=== PATIENT | female | born 1945 | race Caucasian/White ===

== ENCOUNTER 2017-01-09 13:10 | Inpatient (IN) ==
[2017-01-09] MEDS ORDERED: 0.9 % Sodium Chloride 1,000 ML IVC ONE (14:35)
--- NOTE | 2017-01-09 14:49 | Emergency Department Note ---
Disposition Clinical Impression: Pneumonia Qualifiers: Pneumonia type: due to unspecified organism Laterality: left Lung location: unspecified part of lung Qualified Code(s): J18.9 - Pneumonia, unspecified organism Disposition: Admitted As Inpatient Condition: Good Referrals: Raz Jeter DO [Primary Care Provider] - Forms: ED Satisfaction Letter Time of Disposition: 16:33 Altered Mental Status HPI - General Chief Complaint: ED Altered Mental Status Stated Complaint: AMS Time Seen by Provider: 01/09/17 14:45 Source: patient, family Limitations: altered mental status Nursing Notes Reviewed: Yes Vital Signs Reviewed: Yes - History of Present Illness HPI Narrative: 71 year old female with HX of diabetes and sleep apnea presents to the ED lethargic with her daughter. Patients daughter staets that since yesterday she has been coughing with common congestion complaints and that this morning the patient was overtly sleepy in a chair and daughter thought she was just tired. Hwoever this afternoon she trie dto wake the patinet up and the patietn seemd increasingly disoriented and had difficulty answering questions.Daughter checked her POC glucose and at that time it was 110. Daughter states that patien has had decreased oral intake. PAtinet denies any pain at this time but states she does feel dyspneic. PAtinets daughter states that she then took patinet temperature and it was 101.4F Tmax. Did not recieve any anti-pyretics before arrival. No HX of MIs or stroke or recent hospital admissions. - Related Data Home Medications Medication Instructions Recorded Confirmed Alendronate Sodium [Fosamax] 70 mg PO QWEEK 03/10/16 10/08/16 Atenolol [Tenormin] 25 mg PO BID 03/10/16 10/08/16 Levothyroxine Sodium [Tirosint] 75 mcg PO DAILY 03/10/16 03/10/16 Triamterene/HCTZ 37.5/25mg 1 each PO DAILY 03/10/16 10/08/16 [Dyazide] Carvedilol [Coreg] 6.25 mg PO BID 01/09/17 01/09/17 Cholecalciferol (D-3) [Vitamin D] 5,000 unit PO DAILY 01/09/17 01/09/17 Fexofenadine HCl 180 mg PO DAILY 01/09/17 01/09/17 GuaiFENesin/Dextromethorphan 1 each PO Q12H 01/09/17 01/09/17 [Mucinex Dm ER 1,200-60 mg Tab] Insulin Glargine,Hum.rec.anlog 33 unit SQ HS 01/09/17 01/09/17 [Lantus Solostar] Metformin HCl [Glucophage] 1,000 mg PO BID 01/09/17 01/09/17 Allergies Allergy/AdvReac Type Severity Reaction Status Date / Time Penicillins [PCN] Allergy Itching Verified 10/31/16 11:32 Sulfa (Sulfonamide Allergy Nausea Verified 10/31/16 11:32 Antibiotics) aspirin AdvReac See Verified 10/31/16 11:32 Comments Constitutional: Reports: fever, chills, weakness. Denies: weight change Eyes: Denies: eye pain, eye discharge, vision change ENT ED: Reports: congestion. Denies: ear pain, throat pain, dental pain, hearing loss, epistaxis, dysphagia Cardiovascular: Denies: chest pain, palpitations, dyspnea on exertion, edema, syncope Respiratory: Reports: cough, dyspnea. Denies: wheezes, hemoptysis, stridor Gastrointestinal: Denies: abdominal pain, nausea, vomiting, diarrhea, constipation, hematemesis, melena, hematochezia Genitourinary: Denies: dysuria, frequency, hematuria, discharge Musculoskeletal: Denies: back pain, neck pain, arthralgia, myalgia Integumentary: Denies: rash, abrasion, lesions Neurological: Denies: headache, weakness, numbness, paresthesias, confusion, abnormal gait, vertigo Psychiatric: Denies: anxiety, depression, suicidal thoughts, homicidal thoughts , auditory hallucinations, visual hallucinations Past Medical History - Past Medical History Medical history: Reports: asthma, diabetes, hypertension, thyroid disease Surgical history: Reports: non-contributory Psychiatric history: Reports: no psych history - Social History Smoking Status: Former smoker Smokeless Tobacco Status: No Alcohol use: Reports: none Drug use: Reports: none Physical Exam - General Limitations: altered mental status General appearance: lethargic - Head Head exam: atraumatic, normocephalic, normal inspection - Eye Eye exam: Present: normal appearance, PERRL, EOMI - Expanded Eye Exam Pupils: Left: reactive - ENT ENT exam: normal exam, normal oropharynx, mucous membranes dry - Expanded ENT Exam External ear exam: Present: normal external inspection Mouth exam: Present: normal external inspection Teeth exam: Present: normal inspection Throat exam: Present: normal inspection - Neck Neck exam: Present: normal inspection, full ROM, trachea midline - Chest Chest inspection: Present: normal inspection, symmetric chest wall rise - Respiratory Respiratory exam: Present: normal lung sounds bilaterally - Cardiovascular Cardiovascular exam: Present: regular rate, normal rhythm, normal heart sounds - Abdominal Exam Abdominal exam: Present: soft, Non-Tender. Absent: tenderness, distention, guarding, rebound, rigidity - Extremities Exam Extremities exam: Present: normal inspection, full ROM. Absent: tenderness, pedal edema - Expanded Upper Extremity Exam Shoulder exam: Present: normal inspection, full ROM Arm exam: Present: normal inspection, full ROM Elbow exam: Present: normal inspection, full ROM Forearm/Wrist exam: Present: normal inspection, full ROM Hand exam: Present: normal inspection, full ROM Vascular exam: Normal: capillary refill, radial pulse - Expanded Lower Extremity Exam Hip/Pelvis exam: Present: normal inspection, full ROM Upper leg exam: Present: normal inspection, full ROM Knee exam: Present: normal inspection, full ROM Lower leg exam: Present: normal inspection, full ROM Ankle exam: Present: normal inspection, full ROM Foot/toe exam: Present: normal inspection, full ROM Neurovascular/Tendon exam: Absent: motor deficit, sensory deficit, tendon deficit - Back Exam Back exam: Present: normal inspection, full ROM. Absent: tenderness - Neurological Exam Neurological exam: Present: alert - Expanded Neurological Exam Patient oriented to: Present: person, place Speech: Present: fluid speech Cranial nerves: EOM function (II, III, IV, ): Normal, facial sensation (V): Normal, facial palsy (VII): Normal, gag reflex (IX): Normal, tongue deviation ( XII): Normal Motor strength - LUE: 4/5 Motor strength - RUE: 4/5 Motor strength - LLE: 4/5 Motor strength - RLE: 4/5 Upper motor neuron exam: paty neglect: Absent bilaterally, pronator drift: Absent bilaterally Sensory exam upper extremity: light touch: Normal, pin prick: Normal Sensory exam lower extremity: light touch: Normal, pin prick: Normal Coma Scale Eye Opening: Spontaneous Coma Scale Motor Response: Obeys Commands Coma Scale Verbal Response: Oriented Coma Scale Total: 15 - Psychiatric Psychiatric exam: Present: normal affect, normal mood - Skin Skin exam: Present: warm, dry, intact, normal color Course Course Narrative: we will do a sepsis workup on patinet for AMS in addition to a HCT. IVF and tylenol for therapy. - Consultations Consultation #1: discussed case with Dr. Simmons and he accepts patinet to his service Time: 16:33 Vital Signs Temperature 101.7 F H 01/09/17 13:14 Pulse Rate 67 01/09/17 13:14 Respiratory Rate 17 01/09/17 13:14 Blood Pressure 131/68 01/09/17 13:14 O2 Sat by Pulse Oximetry 89 01/09/17 13:14 Temperature 101.7 F H 01/09/17 13:14 Pulse Rate 67 01/09/17 13:14 Respiratory Rate 17 01/09/17 13:14 Blood Pressure 131/68 01/09/17 13:14 O2 Sat by Pulse Oximetry 94 01/09/17 14:12 Oxygen Delivery Oxygen Delivery Room Air Altered Mental Status - Lab Data Result diagrams: 01/09/17 14:55 01/09/17 14:55 Lab Results 01/09/17 01/09/17 01/09/17 Range/Units 13:15 14:55 14:55 WBC 6.6 (4.3-11.1) K/mcL RBC 5.36 H (3.82-4.97) M/mcL Hgb 14.7 (11.5-15.4) g/dL Hct 45.7 H (35.3-44.9) % MCV 85.3 (83.0-100.0) fL MCH 27.4 L (28.0-33.3) pg MCHC 32.2 (31.6-35.5) g/dL RDW 13.8 (11.5-14.5) % Plt Count 182 (140-400) K/mcL MPV 11.0 (9.4-12.4) fL Immature Gran % 0.5 (0-4) % Seg Neutrophils % 79.7 % Lymphocytes % 9.6 % Monocytes % 9.3 % Eosinophils % 0.6 % Basophils % 0.3 % Neutrophils # 5.2 (1.6-8.9) K/mcL Lymphocytes # 0.6 (0.6-4.6) K/mcL Monocytes # 0.6 (0.0-1.3) K/mcL Eosinophils # 0.0 (0.0-0.6) K/mcL Basophils # 0.0 (0.0-0.2) K/mcL PT 12.5 H (9.4-12.1) Seconds INR 1.2 APTT 36.7 H (26.0-36.0) Seconds Sodium (136-145) mEq/L Potassium (3.5-4.5) mEq/L Chloride (98-109) mEq/L Carbon Dioxide (19-29) mEq/L BUN (7-20) mg/dL Creatinine (0.57-1.11) mg/dL Est GFR ( Amer) (> 60) Est GFR (Non-Af Amer) (> 60) BUN/Creatinine Ratio (6-26) Glucose (70-99) mg/dL POC Glucose 110 H (58-89) Calculated Osmolality (280-300) Lactic Acid (0.5-2.2) mmol/L Calcium (8.6-10.8) mg/dL Phosphorus (2.3-4.7) mg/dL Magnesium (1.6-2.6) mg/dL Total Bilirubin (0.2-1.2) mg/dL Direct Bilirubin (0.0-0.5) mg/dL Indirect Bilirubin (0.0-1.2) mg/dL AST (5-34) Units/L ALT (0-55) Units/L Alkaline Phosphatase (38-126) Units/L Troponin I (0-0.03) ng/mL B-Natriuretic Peptide (0-100) pg/mL Serum Total Protein (6.0-8.3) g/dL Albumin (3.5-5.0) g/dL Globulin (2.4-3.5) g/dL Albumin/Globulin Ratio (1.1-2.2) Lipase (8-78) Units/L 01/09/17 01/09/17 01/09/17 Range/Units 14:55 14:55 14:55 WBC (4.3-11.1) K/mcL RBC (3.82-4.97) M/mcL Hgb (11.5-15.4) g/dL Hct (35.3-44.9) % MCV (83.0-100.0) fL MCH (28.0-33.3) pg MCHC (31.6-35.5) g/dL RDW (11.5-14.5) % Plt Count (140-400) K/mcL MPV (9.4-12.4) fL Immature Gran % (0-4) % Seg Neutrophils % % Lymphocytes % % Monocytes % % Eosinophils % % Basophils % % Neutrophils # (1.6-8.9) K/mcL Lymphocytes # (0.6-4.6) K/mcL Monocytes # (0.0-1.3) K/mcL Eosinophils # (0.0-0.6) K/mcL Basophils # (0.0-0.2) K/mcL PT (9.4-12.1) Seconds INR APTT (26.0-36.0) Seconds Sodium 135 L (136-145) mEq/L Potassium 4.0 (3.5-4.5) mEq/L Chloride 96 L (98-109) mEq/L Carbon Dioxide 29 (19-29) mEq/L BUN 10 (7-20) mg/dL Creatinine 1.03 (0.57-1.11) mg/dL Est GFR ( Amer) > 60 (> 60) Est GFR (Non-Af Amer) 53 L (> 60) BUN/Creatinine Ratio 10 (6-26) Glucose 111 H (70-99) mg/dL POC Glucose (58-89) Calculated Osmolality 280 (280-300) Lactic Acid 1.2 (0.5-2.2) mmol/L Calcium 9.6 (8.6-10.8) mg/dL Phosphorus 3.2 (2.3-4.7) mg/dL Magnesium 1.7 (1.6-2.6) mg/dL Total Bilirubin 0.6 (0.2-1.2) mg/dL Direct Bilirubin 0.3 (0.0-0.5) mg/dL Indirect Bilirubin 0.3 (0.0-1.2) mg/dL AST 50 H (5-34) Units/L ALT 37 (0-55) Units/L Alkaline Phosphatase 81 (38-126) Units/L Troponin I 0.00 (0-0.03) ng/mL B-Natriuretic Peptide (0-100) pg/mL Serum Total Protein 7.9 (6.0-8.3) g/dL Albumin 3.8 (3.5-5.0) g/dL Globulin 4.1 H (2.4-3.5) g/dL Albumin/Globulin Ratio 0.9 L (1.1-2.2) Lipase 34 (8-78) Units/L 04//17 Range/Units 14:55 WBC (4.3-11.1) K/mcL RBC (3.82-4.97) M/mcL Hgb (11.5-15.4) g/dL Hct (35.3-44.9) % MCV (83.0-100.0) fL MCH (28.0-33.3) pg MCHC (31.6-35.5) g/dL RDW (11.5-14.5) % Plt Count (140-400) K/mcL MPV (9.4-12.4) fL Immature Gran % (0-4) % Seg Neutrophils % % Lymphocytes % % Monocytes % % Eosinophils % % Basophils % % Neutrophils # (1.6-8.9) K/mcL Lymphocytes # (0.6-4.6) K/mcL Monocytes # (0.0-1.3) K/mcL Eosinophils # (0.0-0.6) K/mcL Basophils # (0.0-0.2) K/mcL PT (9.4-12.1) Seconds INR APTT (26.0-36.0) Seconds Sodium (136-145) mEq/L Potassium (3.5-4.5) mEq/L Chloride (98-109) mEq/L Carbon Dioxide (19-29) mEq/L BUN (7-20) mg/dL Creatinine (0.57-1.11) mg/dL Est GFR ( Amer) (> 60) Est GFR (Non-Af Amer) (> 60) BUN/Creatinine Ratio (6-26) Glucose (70-99) mg/dL POC Glucose (58-89) Calculated Osmolality (280-300) Lactic Acid (0.5-2.2) mmol/L Calcium (8.6-10.8) mg/dL Phosphorus (2.3-4.7) mg/dL Magnesium (1.6-2.6) mg/dL Total Bilirubin (0.2-1.2) mg/dL Direct Bilirubin (0.0-0.5) mg/dL Indirect Bilirubin (0.0-1.2) mg/dL AST (5-34) Units/L ALT (0-55) Units/L Alkaline Phosphatase (38-126) Units/L Troponin I (0-0.03) ng/mL B-Natriuretic Peptide 93 (0-100) pg/mL Serum Total Protein (6.0-8.3) g/dL Albumin (3.5-5.0) g/dL Globulin (2.4-3.5) g/dL Albumin/Globulin Ratio (1.1-2.2) Lipase (8-78) Units/L - EKG Data EKG attestation: Yes I reviewed and interpreted this EKG. EKG results narrative: NSR with rat eof 66. NO STEMI. normal intervals. no change from 03/09/16 1442 TPA Checklist - LKW: 3-4.5 hrs Add. Contraindications Patient/family understanding: The patient/family members have been counseled and understood the risk, benefit , and alternatives of treatment.
[2017-01-09 15:05] LABS: Basophils % 0.3 %; Eosinophils % 0.6 %; Hematocrit 45.7 % (35.3-44.9); Hemoglobin 14.7 g/dL (11.5-15.4); Immature Granulocytes % 0.5 % (0-4); Lymphocytes # 0.6 K/mcL (0.6-4.6); Lymphocytes % 9.6 %; Mean Corpuscular HGB Conc 32.2 g/dL (31.6-35.5); Mean Corpuscular Hemoglobin 27.4 pg (28.0-33.3); Mean Corpuscular Volume 85.3 fL (83.0-100.0); Monocytes # 0.6 K/mcL (0.0-1.3); Monocytes % 9.3 %; Neutrophils # 5.2 K/mcL (1.6-8.9); Platelet Count 182 K/mcL (140-400); Red Blood Count 5.36 M/mcL (3.82-4.97); Red Cell Distribution Width 13.8 % (11.5-14.5); Segmented Neutrophils % 79.7 %
[2017-01-09 15:11] LABS: INR 1.2; Prothrombin Time 12.5 Seconds (9.4-12.1)
[2017-01-09 15:13] LABS: Activated Partial Thrombo Time 36.7 Seconds (26.0-36.0)
[2017-01-09 15:23] LABS: Alanine Aminotransferase 37 Units/L (0-55); Albumin 3.8 g/dL (3.5-5.0); Albumin/Globulin Ratio 0.9 (1.1-2.2); Alkaline Phosphatase 81 Units/L (38-126); Aspartate Amino Transferase 50 Units/L (5-34); BUN/Creatinine Ratio 10 (6-26); Bilirubin,Direct 0.3 mg/dL (0.0-0.5); Bilirubin,Indirect 0.3 mg/dL (0.0-1.2); Bilirubin,Total 0.6 mg/dL (0.2-1.2); Blood Urea Nitrogen 10 mg/dL (7-20); Calcium 9.6 mg/dL (8.6-10.8); Carbon Dioxide 29 mEq/L (19-29); Chloride 96 mEq/L (98-109); Globulin 4.1 g/dL (2.4-3.5); Glucose 111 mg/dL (70-99); Lipase 34 Units/L (8-78); Magnesium 1.7 mg/dL (1.6-2.6); Osmolality,Calculated 280 (280-300); Phosphorous 3.2 mg/dL (2.3-4.7); Sodium 135 mEq/L (136-145); Total Protein 7.9 g/dL (6.0-8.3); eGFR For African Americans > 60 (> 60); eGFR For Non-African Americans 53 (> 60)
[2017-01-09] MEDS ORDERED: Levofloxacin 750 MG/150 ML 750 MG/150 ML BAG IVPB ONE (15:24)
[2017-01-09 16:33] LABS: Bilirubin,Urine Negative (Negative); Blood,Urine Negative (Negative); Clarity,Urine Clear (Clear); Color,Urine Yellow (Yellow); Glucose,Urine (UA) Normal (Normal); Ketones,Urine Negative (Negative); Leukocyte Esterase,Urine Negative (Negative); Nitrite,Urine Negative (Negative); Protein,Urine Negative (Neg-Trace); Urobilinogen,Urine Normal (Normal)
--- NOTE | 2017-01-09 17:03 | Emergency Department Note ---
Disposition Clinical Impression: Pneumonia Qualifiers: Pneumonia type: due to unspecified organism Laterality: left Lung location: unspecified part of lung Qualified Code(s): J18.9 - Pneumonia, unspecified organism Disposition: Admitted As Inpatient Condition: Good General Adult HPI - General Chief complaint: ED Altered Mental Status Stated complaint: AMS Source: patient, family Limitations: altered mental status - History of Present Illness Pain Scale: 0 - Related Data Home Medications Medication Instructions Recorded Confirmed Alendronate Sodium [Fosamax] 70 mg PO QWEEK 03/10/16 01/09/17 Atenolol [Tenormin] 25 mg PO BID 03/10/16 01/09/17 Levothyroxine Sodium [Tirosint] 75 mcg PO QAM 03/10/16 01/09/17 Triamterene/HCTZ 37.5/25mg 1 each PO DAILY 03/10/16 01/09/17 [Dyazide] Carvedilol [Coreg] 6.25 mg PO BID 01/09/17 01/09/17 Cholecalciferol (D-3) [Vitamin D] 5,000 unit PO DAILY 01/09/17 01/09/17 Fexofenadine HCl 180 mg PO DAILY 01/09/17 01/09/17 GuaiFENesin/Dextromethorphan 1 each PO Q12H 01/09/17 01/09/17 [Mucinex Dm ER 1,200-60 mg Tab] Insulin Glargine,Hum.rec.anlog 33 unit SQ HS 01/09/17 01/09/17 [Lantus Solostar] Metformin HCl [Glucophage] 1,000 mg PO BID 01/09/17 01/09/17 Allergies Allergy/AdvReac Type Severity Reaction Status Date / Time Penicillins [PCN] Allergy Itching Verified 10/31/16 11:32 Sulfa (Sulfonamide Allergy Nausea Verified 10/31/16 11:32 Antibiotics) aspirin AdvReac See Verified 10/31/16 11:32 Comments Constitutional: Reports: fever, chills, weakness. Denies: weight change Eyes: Denies: eye pain, eye discharge, vision change ENT ED: Reports: congestion. Denies: ear pain, throat pain, dental pain, hearing loss, epistaxis, dysphagia Cardiovascular: Denies: chest pain, palpitations, dyspnea on exertion, edema, syncope Respiratory: Reports: cough, dyspnea. Denies: wheezes, hemoptysis, stridor Gastrointestinal: Denies: abdominal pain, nausea, vomiting, diarrhea, constipation, hematemesis, melena, hematochezia Genitourinary: Denies: dysuria, frequency, hematuria, discharge Musculoskeletal: Denies: back pain, neck pain, arthralgia, myalgia Integumentary: Denies: rash, abrasion, lesions Neurological: Denies: headache, weakness, numbness, paresthesias, confusion, abnormal gait, vertigo Psychiatric: Denies: anxiety, depression, suicidal thoughts, homicidal thoughts , auditory hallucinations, visual hallucinations Past Medical History - Past Medical History Medical history: Reports: asthma, diabetes, hypertension, thyroid disease Surgical history: Reports: non-contributory Psychiatric history: Reports: no psych history - Social History Smoking Status: Former smoker Smokeless Tobacco Status: No Alcohol use: Reports: none Drug use: Reports: none Physical Exam - General Limitations: altered mental status General appearance: lethargic Course - Reevaluation(s) Reevaluation #1: I saw the patient with the resident, Dr. Velez. She presents with altered mental status and is found to have a fever. She reportedly has had a cough since yesterday. Turns out that she has the flu. However patient is so weak and showing signs of confusion that I do not feel it appropriate for her to be treated on an outpatient basis at this time. We will get a temperature controlled and hydrated her. We will have her admitted to the hospital. Time: 17:03 Vital Signs Temperature 101.7 F H 01/09/17 13:14 Pulse Rate 67 01/09/17 13:14 Respiratory Rate 17 01/09/17 13:14 Blood Pressure 131/68 01/09/17 13:14 O2 Sat by Pulse Oximetry 89 01/09/17 13:14 Temperature 101.7 F H 01/09/17 13:14 Pulse Rate 75 01/09/17 16:00 Respiratory Rate 18 01/09/17 16:00 Blood Pressure 134/71 01/09/17 16:00 O2 Sat by Pulse Oximetry 96 01/09/17 16:00 Oxygen Delivery Oxygen Delivery Nasal Cannula Medical Decision Making - Lab Data Result diagrams: 01/09/17 14:55 01/09/17 14:55 Lab Results 0401/09/17 01/09/17 Range/Units 13:15 14:55 14:55 WBC 6.6 (4.3-11.1) K/mcL RBC 5.36 H (3.82-4.97) M/mcL Hgb 14.7 (11.5-15.4) g/dL Hct 45.7 H (35.3-44.9) % MCV 85.3 (83.0-100.0) fL MCH 27.4 L (28.0-33.3) pg MCHC 32.2 (31.6-35.5) g/dL RDW 13.8 (11.5-14.5) % Plt Count 182 (140-400) K/mcL MPV 11.0 (9.4-12.4) fL Immature Gran % 0.5 (0-4) % Seg Neutrophils % 79.7 % Lymphocytes % 9.6 % Monocytes % 9.3 % Eosinophils % 0.6 % Basophils % 0.3 % Neutrophils # 5.2 (1.6-8.9) K/mcL Lymphocytes # 0.6 (0.6-4.6) K/mcL Monocytes # 0.6 (0.0-1.3) K/mcL Eosinophils # 0.0 (0.0-0.6) K/mcL Basophils # 0.0 (0.0-0.2) K/mcL PT 12.5 H (9.4-12.1) Seconds INR 1.2 APTT 36.7 H (26.0-36.0) Seconds Sodium (136-145) mEq/L Potassium (3.5-4.5) mEq/L Chloride (98-109) mEq/L Carbon Dioxide (19-29) mEq/L BUN (7-20) mg/dL Creatinine (0.57-1.11) mg/dL Est GFR ( Amer) (> 60) Est GFR (Non-Af Amer) (> 60) BUN/Creatinine Ratio (6-26) Glucose (70-99) mg/dL POC Glucose 110 H (58-89) Calculated Osmolality (280-300) Lactic Acid (0.5-2.2) mmol/L Calcium (8.6-10.8) mg/dL Phosphorus (2.3-4.7) mg/dL Magnesium (1.6-2.6) mg/dL Total Bilirubin (0.2-1.2) mg/dL Direct Bilirubin (0.0-0.5) mg/dL Indirect Bilirubin (0.0-1.2) mg/dL AST (5-34) Units/L ALT (0-55) Units/L Alkaline Phosphatase (38-126) Units/L Troponin I (0-0.03) ng/mL B-Natriuretic Peptide (0-100) pg/mL Serum Total Protein (6.0-8.3) g/dL Albumin (3.5-5.0) g/dL Globulin (2.4-3.5) g/dL Albumin/Globulin Ratio (1.1-2.2) Lipase (8-78) Units/L Urine Color (Yellow) Urine Clarity (Clear) Urine pH (5.0-8.0) pH Units Ur Specific Sultan (1.010-1.025) Urine Protein (Neg-Trace) mg/dL Urine Glucose (UA) (Normal) mg/dL Urine Ketones (Negative) mg/dL Urine Blood (Negative) Urine Nitrite (Negative) Urine Bilirubin (Negative) Urine Urobilinogen (Normal) mg/dL Ur Leukocyte Esterase (Negative) Ur Culture Indicated? (NO) 01/09/17 01/09/17 01/09/17 Range/Units 14:55 14:55 14:55 WBC (4.3-11.1) K/mcL RBC (3.82-4.97) M/mcL Hgb (11.5-15.4) g/dL Hct (35.3-44.9) % MCV (83.0-100.0) fL MCH (28.0-33.3) pg MCHC (31.6-35.5) g/dL RDW (11.5-14.5) % Plt Count (140-400) K/mcL MPV (9.4-12.4) fL Immature Gran % (0-4) % Seg Neutrophils % % Lymphocytes % % Monocytes % % Eosinophils % % Basophils % % Neutrophils # (1.6-8.9) K/mcL Lymphocytes # (0.6-4.6) K/mcL Monocytes # (0.0-1.3) K/mcL Eosinophils # (0.0-0.6) K/mcL Basophils # (0.0-0.2) K/mcL PT (9.4-12.1) Seconds INR APTT (26.0-36.0) Seconds Sodium 135 L (136-145) mEq/L Potassium 4.0 (3.5-4.5) mEq/L Chloride 96 L (98-109) mEq/L Carbon Dioxide 29 (19-29) mEq/L BUN 10 (7-20) mg/dL Creatinine 1.03 (0.57-1.11) mg/dL Est GFR ( Amer) > 60 (> 60) Est GFR (Non-Af Amer) 53 L (> 60) BUN/Creatinine Ratio 10 (6-26) Glucose 111 H (70-99) mg/dL POC Glucose (58-89) Calculated Osmolality 280 (280-300) Lactic Acid 1.2 (0.5-2.2) mmol/L Calcium 9.6 (8.6-10.8) mg/dL Phosphorus 3.2 (2.3-4.7) mg/dL Magnesium 1.7 (1.6-2.6) mg/dL Total Bilirubin 0.6 (0.2-1.2) mg/dL Direct Bilirubin 0.3 (0.0-0.5) mg/dL Indirect Bilirubin 0.3 (0.0-1.2) mg/dL AST 50 H (5-34) Units/L ALT 37 (0-55) Units/L Alkaline Phosphatase 81 (38-126) Units/L Troponin I 0.00 (0-0.03) ng/mL B-Natriuretic Peptide (0-100) pg/mL Serum Total Protein 7.9 (6.0-8.3) g/dL Albumin 3.8 (3.5-5.0) g/dL Globulin 4.1 H (2.4-3.5) g/dL Albumin/Globulin Ratio 0.9 L (1.1-2.2) Lipase 34 (8-78) Units/L Urine Color (Yellow) Urine Clarity (Clear) Urine pH (5.0-8.0) pH Units Ur Specific Sultan (1.010-1.025) Urine Protein (Neg-Trace) mg/dL Urine Glucose (UA) (Normal) mg/dL Urine Ketones (Negative) mg/dL Urine Blood (Negative) Urine Nitrite (Negative) Urine Bilirubin (Negative) Urine Urobilinogen (Normal) mg/dL Ur Leukocyte Esterase (Negative) Ur Culture Indicated? (NO) 01/09/17 01/09/17 Range/Units 14:55 16:25 WBC (4.3-11.1) K/mcL RBC (3.82-4.97) M/mcL Hgb (11.5-15.4) g/dL Hct (35.3-44.9) % MCV (83.0-100.0) fL MCH (28.0-33.3) pg MCHC (31.6-35.5) g/dL RDW (11.5-14.5) % Plt Count (140-400) K/mcL MPV (9.4-12.4) fL Immature Gran % (0-4) % Seg Neutrophils % % Lymphocytes % % Monocytes % % Eosinophils % % Basophils % % Neutrophils # (1.6-8.9) K/mcL Lymphocytes # (0.6-4.6) K/mcL Monocytes # (0.0-1.3) K/mcL Eosinophils # (0.0-0.6) K/mcL Basophils # (0.0-0.2) K/mcL PT (9.4-12.1) Seconds INR APTT (26.0-36.0) Seconds Sodium (136-145) mEq/L Potassium (3.5-4.5) mEq/L Chloride (98-109) mEq/L Carbon Dioxide (19-29) mEq/L BUN (7-20) mg/dL Creatinine (0.57-1.11) mg/dL Est GFR ( Amer) (> 60) Est GFR (Non-Af Amer) (> 60) BUN/Creatinine Ratio (6-26) Glucose (70-99) mg/dL POC Glucose (58-89) Calculated Osmolality (280-300) Lactic Acid (0.5-2.2) mmol/L Calcium (8.6-10.8) mg/dL Phosphorus (2.3-4.7) mg/dL Magnesium (1.6-2.6) mg/dL Total Bilirubin (0.2-1.2) mg/dL Direct Bilirubin (0.0-0.5) mg/dL Indirect Bilirubin (0.0-1.2) mg/dL AST (5-34) Units/L ALT (0-55) Units/L Alkaline Phosphatase (38-126) Units/L Troponin I (0-0.03) ng/mL B-Natriuretic Peptide 93 (0-100) pg/mL Serum Total Protein (6.0-8.3) g/dL Albumin (3.5-5.0) g/dL Globulin (2.4-3.5) g/dL Albumin/Globulin Ratio (1.1-2.2) Lipase (8-78) Units/L Urine Color Yellow (Yellow) Urine Clarity Clear (Clear) Urine pH 7.0 (5.0-8.0) pH Units Ur Specific Sultan 1.020 (1.010-1.025) Urine Protein Negative (Neg-Trace) mg/dL Urine Glucose (UA) Normal (Normal) mg/dL Urine Ketones Negative (Negative) mg/dL Urine Blood Negative (Negative) Urine Nitrite Negative (Negative) Urine Bilirubin Negative (Negative) Urine Urobilinogen Normal (Normal) mg/dL Ur Leukocyte Esterase Negative (Negative) Ur Culture Indicated? NO (NO) Attestation Statement - Attestation Attestation: I, Dr. Landry, examined this patient [id number] and my medical decision- making was reviewed with Dr. Velez, Resident Physician. I agree with the documented findings, disposition and treatment plan as described except to the extent set forth below. Please see my progress notes for details.
[2017-01-09] MEDS ORDERED: Naloxone 0.4 MG/ML INJ IVP PRN (17:15)
[2017-01-09] MEDS ORDERED: D5% in Water 1,000 ML IVC PRN (17:20)
[2017-01-09] MEDS ORDERED: Dextrose Gel 15 GM PO PRN ×2 (17:20)
[2017-01-09] MEDS ORDERED: *HR* Dextrose 50 % in Water (Syg) 50 ML SYRINGE IVP PRN (17:20)
[2017-01-09 17:24] LABS: Thyroid Stimulating Hormone 1.452 mcIU/mL (0.350-4.840)
--- NOTE | 2017-01-09 17:28 | Internal Med History&Physical ---
<Brigid Burns M - Last Filed: 01/09/17 17:24> Date of Encounter: 01/09/17 Time of Encounter: 17:24 Assessment and Plan (1) Pneumonia Current visit: Yes Status: Acute Patient with fever and productive cough. Rhonchi on auscultation. CXR shows small right basilar infiltrate, possible pneumonia. IV fluids 0.9NS at 100mL/hr Levaquin IVPB duoneb treatments QID titrate O2 to maintain oxygen saturation > 92%. Qualifiers: Pneumonia type: due to unspecified organism Laterality: right Lung location: lower lobe of lung Qualified Code(s): J18.1 - Lobar pneumonia, unspecified organism (2) Hypertension Current visit: Yes Status: Chronic Controlled since arrival. Continue home doses of carvedilol and dyazide. Qualifiers: Hypertension type: essential hypertension Qualified Code(s): I10 - Essential (primary) hypertension (3) Type 2 diabetes mellitus Current visit: Yes Status: Chronic Diabetic diet Hgb A1c ordered check blood sugars ACHS Hold home metformin. As patient has poor appetite, give Levemir 22u HS tonight instead of usual dose of 33u. Sliding scale correction dose ACHS hypoglycemic protocol. Qualifiers: Diabetes mellitus complication status: with circulatory complication Diabetes mellitus complication detail: with peripheral angiopathy without gangrene Diabetes mellitus half-way insulin use: with farm equipment mechanic apprentice use Qualified Code(s): E11.51 - Type 2 diabetes mellitus with diabetic peripheral angiopathy without gangrene; Z79.4 - backend java developer (current) use of insulin (4) Sleep apnea Current visit: Yes Status: Acute Respiratory consult ordered for CPAP Qualifiers: Sleep apnea type: unspecified type Qualified Code(s): G47.30 - Sleep apnea , unspecified (5) DVT prophylaxis Current visit: Yes Status: Acute Ambulate with assistance anti-embolic stockings lovenox 40mg SQ daily Internal Medicine - H&P: HPI Chief complaint: cough, fever Admitted From: Emergency Dept Plans for Post Hospital Care: Home History of present illness: Ms. Cannon is a 71 year old female hypertension, type 2 diabetes, sleep apnea , hypothyroid, asthma who presented to the emergency department today with complaints of altered mental status. Her daughter brought her in when she noted patient was very lethargic. Patient reports she has been coughing for several days with productive cough as well as poor appetite, fatigue. She reports sinus and nasal congestion, wheezing, and headache. Patient reports she took her insulin last evening but has not been eating as much because of her poor appetite. Because of this without she may have low blood sugar but they checked her blood sugar at home and it was normal at 110. However she did have a fever at home of 101.4. Patient denies chills or sweats. She denies any body aches, chest pain, palpitations, abdominal pain, diarrhea, numbness or tingling. She complains of some burning with urination. Evaluation in the emergency department revealed patient was febrile with temperature of 101.7. Head CT showed no acute intracranial abnormality. Chest x-ray showed small right basilar infiltrate possible pneumonia. EKG showed normal sinus rhythm. White blood cell count was normal at 6.6, lactate was normal at 1.2, troponin was negative at 0.0, BNP was normal at 93. UA was negative for any abnormality. Flu swab was negative. On exam, patient is alert and oriented, complaining of fatigue. She has bilateral rhonchi on auscultation. Heart has regular rate and rhythm. Past Med Surg Social Fam HX - Past Medical History Medical history: asthma, diabetes, hypertension, peripheral artery disease, thyroid disease Psychiatric history: no psych history - Past Surgical History Surgical History: orthopedic, other (back surgery, carpal tunnel), vascular surgery - Social History Smoking Status: Former smoker Smokeless Tobacco Status: No Alcohol use: none Drug use: none - Family History Father Living Status: Age at : 68 Hx Family Cardiac Disorders: Yes Internal Medicine - H&P: Meds Alendronate Sodium [Fosamax] 70 mg PO QWEEK 03/10/16 [History] Atenolol [Tenormin] 25 mg PO BID 03/10/16 [History] Levothyroxine Sodium [Tirosint] 75 mcg PO QAM 03/10/16 [History] Triamterene/HCTZ 37.5/25mg [Dyazide] 1 each PO DAILY 03/10/16 [History] Carvedilol [Coreg] 6.25 mg PO BID 01/09/17 [History] Cholecalciferol (D-3) [Vitamin D] 5,000 unit PO DAILY 01/09/17 [History] Fexofenadine HCl 180 mg PO DAILY 01/09/17 [History] GuaiFENesin/Dextromethorphan [Mucinex Dm ER 1,200-60 mg Tab] 1 each PO Q12H [History] Insulin Glargine,Hum.rec.anlog [Lantus Solostar] 33 unit SQ HS 01/09/17 [History ] Metformin HCl [Glucophage] 1,000 mg PO BID 01/09/17 [History] Allergies Penicillins [PCN] Allergy (Verified 10/31/16 11:32) Itching Sulfa (Sulfonamide Antibiotics) Allergy (Verified 10/31/16 11:32) Nausea aspirin Adverse Reaction (Verified 10/31/16 11:32) See Comments stomach ulcer All Systems PM: A 10-system review of systems was performed and is negative for pertinent findings except as documented above in the HPI. - Constitutional Constitutional: fatigue, fever(s), lethargy, no chills, no night sweats - EENT Eyes: no change in vision, no discharge, no pain, no photophobia Ears: no ear discharge, no ear pain, no tinnitus Nose, mouth and throat: nasal congestion, nasal discharge, sinus pressure, no dysphagia, no neck pain, no sore throat - Cardiovascular Cardiovascular ROS IM: no chest pain, no diaphoresis, no dyspnea, no lightheadedness, no palpitations, no syncope - Respiratory Respiratory: cough, wheezing, chest congestion, excessive phlegm production, no dyspnea - Gastrointestinal Gastrointestinal: no abdominal pain, no diarrhea, no hematemesis, no hematochezia, no melena, no nausea, no vomiting - Genitourinary Genitourinary: dysuria, no change in urinary stream, no flank pain, no hematuria - Musculoskeletal Musculoskeletal ROS IM: no numbness, no tingling - Integumentary Integumentary IM: no rash, no unusual bruising - Neurological Neurological ROS: no confusion, no convulsions, no focal weakness, no numbness, no tingling, no tremor(s) - Hematologic/Lymphatic Hematologic/Lymphatic: no easy bruising - Constitutional Vitals: Temp Pulse Resp BP Pulse Ox 101.7 F H 69 18 128/66 96 01/09/17 13:14 01/09/17 16:30 01/09/17 16:30 01/09/17 16:30 01/09/17 16:30 General appearance: Present: A&O X 3, pleasant, no acute distress - Head Head exam: Present: atraumatic, normocephalic - Eye Eye exam: Present: PERRL, conjuntiva pink, sclera anicteric Pupils: Present: PERRL - Neck Neck exam general surgery: Present: supple, trachea midline. Absent: lymphadenopathy - Respiratory Respiratory exam: Present: rhonchi. Absent: accessory muscle use, rales, wheezes - Cardiovascular Cardiovascular exam: Present: RRR, +S1, +S2. Absent: diastolic murmur, gallop, rubs, systolic murmur - GI/Abdominal GI/Abdominal exam: Present: normal bowel sounds, soft, no peritoneal signs. Absent: distended, tenderness - Extremities Exam Extremities exam: Present: warm, radial pulses palpable and symetrical. Absent : calf tenderness, cyanotic, pedal edema - Neurological Exam Neurological exam: Present: CN II-XII intact, oriented X3, no focal deficits. Absent: facial droop, speech deficit - Skin Skin exam: Present: dry, intact Internal Med - H&P Results - Labs CBC & Chem 7: 01/09/17 14:55 01/09/17 14:55 Labs: All Lab Results (24 Hours) 01/09/17 01/09/17 01/09/17 Range/Units 13:15 14:55 14:55 WBC 6.6 (4.3-11.1) K/mcL RBC 5.36 H (3.82-4.97) M/mcL Hgb 14.7 (11.5-15.4) g/dL Hct 45.7 H (35.3-44.9) % MCV 85.3 (83.0-100.0) fL MCH 27.4 L (28.0-33.3) pg MCHC 32.2 (31.6-35.5) g/dL RDW 13.8 (11.5-14.5) % Plt Count 182 (140-400) K/mcL MPV 11.0 (9.4-12.4) fL Immature Gran % 0.5 (0-4) % Seg Neutrophils % 79.7 % Lymphocytes % 9.6 % Monocytes % 9.3 % Eosinophils % 0.6 % Basophils % 0.3 % Neutrophils # 5.2 (1.6-8.9) K/mcL Lymphocytes # 0.6 (0.6-4.6) K/mcL Monocytes # 0.6 (0.0-1.3) K/mcL Eosinophils # 0.0 (0.0-0.6) K/mcL Basophils # 0.0 (0.0-0.2) K/mcL PT 12.5 H (9.4-12.1) Seconds INR 1.2 APTT 36.7 H (26.0-36.0) Seconds Sodium (136-145) mEq/L Potassium (3.5-4.5) mEq/L Chloride (98-109) mEq/L Carbon Dioxide (19-29) mEq/L BUN (7-20) mg/dL Creatinine (0.57-1.11) mg/dL Est GFR ( Amer) (> 60) Est GFR (Non-Af Amer) (> 60) BUN/Creatinine Ratio (6-26) Glucose (70-99) mg/dL POC Glucose 110 H (58-89) Calculated Osmolality (280-300) Lactic Acid (0.5-2.2) mmol/L Calcium (8.6-10.8) mg/dL Phosphorus (2.3-4.7) mg/dL Magnesium (1.6-2.6) mg/dL Total Bilirubin (0.2-1.2) mg/dL Direct Bilirubin (0.0-0.5) mg/dL Indirect Bilirubin (0.0-1.2) mg/dL AST (5-34) Units/L ALT (0-55) Units/L Alkaline Phosphatase (38-126) Units/L Troponin I (0-0.03) ng/mL B-Natriuretic Peptide (0-100) pg/mL Serum Total Protein (6.0-8.3) g/dL Albumin (3.5-5.0) g/dL Globulin (2.4-3.5) g/dL Albumin/Globulin Ratio (1.1-2.2) Lipase (8-78) Units/L TSH (0.350-4.840) mcIU/mL Urine Color (Yellow) Urine Clarity (Clear) Urine pH (5.0-8.0) pH Units Ur Specific [place] (1.010-1.025) Urine Protein (Neg-Trace) mg/dL Urine Glucose (UA) (Normal) mg/dL Urine Ketones (Negative) mg/dL Urine Blood (Negative) Urine Nitrite (Negative) Urine Bilirubin (Negative) Urine Urobilinogen (Normal) mg/dL Ur Leukocyte Esterase (Negative) Ur Culture Indicated? (NO) 01/09/17 01/09/17 01/09/17 Range/Units 14:55 14:55 14:55 WBC (4.3-11.1) K/mcL RBC (3.82-4.97) M/mcL Hgb (11.5-15.4) g/dL Hct (35.3-44.9) % MCV (83.0-100.0) fL MCH (28.0-33.3) pg MCHC (31.6-35.5) g/dL RDW (11.5-14.5) % Plt Count (140-400) K/mcL MPV (9.4-12.4) fL Immature Gran % (0-4) % Seg Neutrophils % % Lymphocytes % % Monocytes % % Eosinophils % % Basophils % % Neutrophils # (1.6-8.9) K/mcL Lymphocytes # (0.6-4.6) K/mcL Monocytes # (0.0-1.3) K/mcL Eosinophils # (0.0-0.6) K/mcL Basophils # (0.0-0.2) K/mcL PT (9.4-12.1) Seconds INR APTT (26.0-36.0) Seconds Sodium 135 L (136-145) mEq/L Potassium 4.0 (3.5-4.5) mEq/L Chloride 96 L (98-109) mEq/L Carbon Dioxide 29 (19-29) mEq/L BUN 10 (7-20) mg/dL Creatinine 1.03 (0.57-1.11) mg/dL Est GFR ( Amer) > 60 (> 60) Est GFR (Non-Af Amer) 53 L (> 60) BUN/Creatinine Ratio 10 (6-26) Glucose 111 H (70-99) mg/dL POC Glucose (58-89) Calculated Osmolality 280 (280-300) Lactic Acid 1.2 (0.5-2.2) mmol/L Calcium 9.6 (8.6-10.8) mg/dL Phosphorus 3.2 (2.3-4.7) mg/dL Magnesium 1.7 (1.6-2.6) mg/dL Total Bilirubin 0.6 (0.2-1.2) mg/dL Direct Bilirubin 0.3 (0.0-0.5) mg/dL Indirect Bilirubin 0.3 (0.0-1.2) mg/dL AST 50 H (5-34) Units/L ALT 37 (0-55) Units/L Alkaline Phosphatase 81 (38-126) Units/L Troponin I 0.00 (0-0.03) ng/mL B-Natriuretic Peptide (0-100) pg/mL Serum Total Protein 7.9 (6.0-8.3) g/dL Albumin 3.8 (3.5-5.0) g/dL Globulin 4.1 H (2.4-3.5) g/dL Albumin/Globulin Ratio 0.9 L (1.1-2.2) Lipase 34 (8-78) Units/L TSH 1.452 (0.350-4.840) mcIU/mL Urine Color (Yellow) Urine Clarity (Clear) Urine pH (5.0-8.0) pH Units Ur Specific [place] (1.010-1.025) Urine Protein (Neg-Trace) mg/dL Urine Glucose (UA) (Normal) mg/dL Urine Ketones (Negative) mg/dL Urine Blood (Negative) Urine Nitrite (Negative) Urine Bilirubin (Negative) Urine Urobilinogen (Normal) mg/dL Ur Leukocyte Esterase (Negative) Ur Culture Indicated? (NO) 01/09/17 01/09/17 Range/Units 14:55 16:25 WBC (4.3-11.1) K/mcL RBC (3.82-4.97) M/mcL Hgb (11.5-15.4) g/dL Hct (35.3-44.9) % MCV (83.0-100.0) fL MCH (28.0-33.3) pg MCHC (31.6-35.5) g/dL RDW (11.5-14.5) % Plt Count (140-400) K/mcL MPV (9.4-12.4) fL Immature Gran % (0-4) % Seg Neutrophils % % Lymphocytes % % Monocytes % % Eosinophils % % Basophils % % Neutrophils # (1.6-8.9) K/mcL Lymphocytes # (0.6-4.6) K/mcL Monocytes # (0.0-1.3) K/mcL Eosinophils # (0.0-0.6) K/mcL Basophils # (0.0-0.2) K/mcL PT (9.4-12.1) Seconds INR APTT (26.0-36.0) Seconds Sodium (136-145) mEq/L Potassium (3.5-4.5) mEq/L Chloride (98-109) mEq/L Carbon Dioxide (19-29) mEq/L BUN (7-20) mg/dL Creatinine (0.57-1.11) mg/dL Est GFR ( Amer) (> 60) Est GFR (Non-Af Amer) (> 60) BUN/Creatinine Ratio (6-26) Glucose (70-99) mg/dL POC Glucose (58-89) Calculated Osmolality (280-300) Lactic Acid (0.5-2.2) mmol/L Calcium (8.6-10.8) mg/dL Phosphorus (2.3-4.7) mg/dL Magnesium (1.6-2.6) mg/dL Total Bilirubin (0.2-1.2) mg/dL Direct Bilirubin (0.0-0.5) mg/dL Indirect Bilirubin (0.0-1.2) mg/dL AST (5-34) Units/L ALT (0-55) Units/L Alkaline Phosphatase (38-126) Units/L Troponin I (0-0.03) ng/mL B-Natriuretic Peptide 93 (0-100) pg/mL Serum Total Protein (6.0-8.3) g/dL Albumin (3.5-5.0) g/dL Globulin (2.4-3.5) g/dL Albumin/Globulin Ratio (1.1-2.2) Lipase (8-78) Units/L TSH (0.350-4.840) mcIU/mL Urine Color Yellow (Yellow) Urine Clarity Clear (Clear) Urine pH 7.0 (5.0-8.0) pH Units Ur Specific [place] 1.020 (1.010-1.025) Urine Protein Negative (Neg-Trace) mg/dL Urine Glucose (UA) Normal (Normal) mg/dL Urine Ketones Negative (Negative) mg/dL Urine Blood Negative (Negative) Urine Nitrite Negative (Negative) Urine Bilirubin Negative (Negative) Urine Urobilinogen Normal (Normal) mg/dL Ur Leukocyte Esterase Negative (Negative) Ur Culture Indicated? NO (NO) - Diagnostic Studies Chest x-ray Additional comments: Chest X-Ray 01/09/17 15:21 IMPRESSION: Small right basilar infiltrate which may either be due to atelectasis or pneumonia. D/ / Domo Mims MD / Domo Mims MD Interpreting Provider: Domo Mims MD CT scan - head Additional comments: Head CT 01/09/17 14:49 IMPRESSION: No acute intracranial abnormality. D/ / Ty Heard MD / Ty Heard MD Interpreting Provider: Ty Heard MD <Jw Simmons - Last Filed: 01/09/17 17:57> Date of Encounter: 01/09/17 Internal Medicine - H&P: HPI History of present illness: Ms. Cannon is a 71 year old female All Systems PM: A 10-system review of systems was performed and is negative for pertinent findings except as documented above in the HPI. - Constitutional Vitals: Temp Pulse Resp BP Pulse Ox 101.7 F H 69 18 128/66 96 01/09/17 13:14 01/09/17 16:30 01/09/17 16:30 01/09/17 16:30 01/09/17 16:30 Internal Med - H&P Results - Labs CBC & Chem 7: 01/09/17 14:55 01/09/17 14:55 - Attending Attestation I examined this patient and my medical decision-making was reviewed with the GLOBAL MARKETING OPERATIONS MANAGER/PA/Advanced Practice Nurse/Resident Physician. I agree with the documented findings, disposition and treatment plan as described except to the extent set forth below. PNA, continue with iv antibiotics. IV fluids. Agree with FRANSICO Burns.
[2017-01-09 17:54] LABS: Hemoglobin A1C 6.8 %
[2017-01-09] MEDS: 0.9 % Sodium Chloride 1,000 ML IVC SCH (18:49)
[2017-01-09] MEDS: Ipratropium 1 PUFF INHALER IH SCH ×2 (20:00→23:14)
[2017-01-09] MEDS: Insulin LISPRO 300 UNITS/3 ML VIAL SQ SCH (20:44)
[2017-01-09] MEDS: Insulin DETEMIR 100 UNIT/ML X5UNITS SQ SCH (20:44)
[2017-01-09] MEDS: Acetaminophen 325 MG TABLET PO PRN (23:39)
[2017-01-10] MEDS: Ipratropium 1 PUFF INHALER IH SCH ×4 (04:42→20:41)
[2017-01-10 05:18] LABS: Basophils % 0.2 %; Eosinophils % 0.2 %; Hematocrit 39.3 % (35.3-44.9); Immature Granulocytes % 0.7 % (0-4); Lymphocytes # 0.9 K/mcL (0.6-4.6); Lymphocytes % 20.6 %; Mean Corpuscular HGB Conc 32.1 g/dL (31.6-35.5); Mean Corpuscular Hemoglobin 27.4 pg (28.0-33.3); Mean Corpuscular Volume 85.4 fL (83.0-100.0); Mean Platelet Volume 11.3 fL (9.4-12.4); Monocytes # 0.5 K/mcL (0.0-1.3); Monocytes % 12.2 %; Neutrophils # 2.9 K/mcL (1.6-8.9); Platelet Count 152 K/mcL (140-400); Red Cell Distribution Width 13.7 % (11.5-14.5); Segmented Neutrophils % 66.1 %
[2017-01-10 05:25] LABS: Hemoglobin 12.6 g/dL (11.5-15.4)
[2017-01-10 05:31] LABS: BUN/Creatinine Ratio 10 (6-26); Blood Urea Nitrogen 9 mg/dL (7-20); Calcium 8.5 mg/dL (8.6-10.8); Carbon Dioxide 27 mEq/L (19-29); Chloride 101 mEq/L (98-109); Glucose 78 mg/dL (70-99); Osmolality,Calculated 280 (280-300); Potassium 4.2 mEq/L (3.5-4.5); Sodium 136 mEq/L (136-145); eGFR For African Americans > 60 (> 60); eGFR For Non-African Americans > 60 (> 60)
[2017-01-10] MEDS: 0.9 % Sodium Chloride 1,000 ML IVC SCH ×3 (06:01→17:39)
[2017-01-10] MEDS: *HR* Enoxaparin 40 MG/0.4 ML SYRINGE SQ SCH (06:02)
[2017-01-10] MEDS: Acetaminophen 325 MG TABLET PO PRN (07:47)
[2017-01-10] MEDS: Insulin LISPRO 300 UNITS/3 ML VIAL SQ SCH ×4 (07:57→20:52)
--- NOTE | 2017-01-10 15:49 | Internal Med Progress Note ---
Date of Encounter: 01/10/17 Time of Encounter: 15:46 - Assessment and plan (1) Pneumonia Current Visit: Yes Status: Acute Assessment and plan: Continue antibiotics. Influenza positive, continue tamiflu. Encourage po hydration, continue with iv fluids. Qualifiers: Pneumonia type: due to unspecified organism Laterality: right Lung location: lower lobe of lung Qualified Code(s): J18.1 - Lobar pneumonia, unspecified organism (2) Influenza Current Visit: Yes Status: Acute (3) Hypertension Current Visit: Yes Status: Chronic Qualifiers: Hypertension type: essential hypertension Qualified Code(s): I10 - Essential (primary) hypertension (4) Type 2 diabetes mellitus Current Visit: Yes Status: Chronic Qualifiers: Diabetes mellitus complication status: with circulatory complication Diabetes mellitus complication detail: with peripheral angiopathy without gangrene Diabetes mellitus fci insulin use: with joint terminal attack controller use Qualified Code(s): E11.51 - Type 2 diabetes mellitus with diabetic peripheral angiopathy without gangrene; Z79.4 - care home (current) use of insulin (5) Sleep apnea Current Visit: Yes Status: Acute Qualifiers: Sleep apnea type: unspecified type Qualified Code(s): G47.30 - Sleep apnea , unspecified (6) DVT prophylaxis Current Visit: Yes Status: Acute - Time Spent With Patient 25 - 35 minutes - Subjective Interval history: febrile last night. feels better. "I was confused yesterday" - Constitutional Vitals: Temp Pulse Resp BP Pulse Ox 98.4 F 69 18 106/58 96 01/10/17 11:36 01/10/17 11:36 01/10/17 11:36 01/10/17 11:36 01/10/17 11:36 General appearance: Present: A&O X 3, pleasant, no acute distress - Head Head exam: Present: atraumatic, normocephalic - Eye Eye exam: Present: PERRL, conjuntiva pink, sclera anicteric Pupils: Present: PERRL - Neck Neck exam general surgery: Present: supple, trachea midline. Absent: lymphadenopathy - Respiratory Respiratory exam: Present: decreased breath sounds, rhonchi. Absent: accessory muscle use, rales, wheezes - Cardiovascular Cardiovascular exam: Present: RRR, +S1, +S2. Absent: diastolic murmur, gallop, rubs, systolic murmur - GI/Abdominal GI/Abdominal exam: Present: normal bowel sounds, soft, no peritoneal signs. Absent: distended, tenderness - Extremities Exam Extremities exam: Present: warm, radial pulses palpable and symetrical. Absent : calf tenderness, cyanotic, pedal edema - Neurological Exam Neurological exam: Present: CN II-XII intact, oriented X3, no focal deficits. Absent: pronater drift, facial droop, speech deficit - Skin Skin exam: Present: dry, intact Internal Medicine: Result - Labs CBC & Chem 7: 01/10/17 04:49 01/10/17 04:49 Labs: Short CBC 01/10/17 Range/Units 04:49 WBC 4.4 (4.3-11.1) K/mcL Hgb 12.6 D (11.5-15.4) g/dL Hct 39.3 (35.3-44.9) % Plt Count 152 (140-400) K/mcL Neutrophils # 2.9 (1.6-8.9) K/mcL BMP 01/10/17 04:49 Sodium 136 Potassium 4.2 Chloride 101 Carbon Dioxide 27 BUN 9 Creatinine 0.87 Glucose 78 Calcium 8.5 L - ABG Interpretation ABG results: PT/INR, D-dimer PT 12.5 Seconds (9.4-12.1) H 01/09/17 14:55 - VTE Documentation of Mechanical Device: Graduated compression elastic hosiery Consult Discharge Plan - Plan Referrals: Raz Jeter DO [Primary Care Provider] - 01/17/17 1:45 pm (Please follow up as schedule...)
[2017-01-10] MEDS: Oseltamivir Phosphate 30 MG CAPSULE PO SCH (20:51)
[2017-01-10] MEDS: Insulin DETEMIR 100 UNIT/ML X5UNITS SQ SCH (20:51)
[2017-01-10] MEDS ORDERED: Melatonin 3 MG TABLET PO ONE (21:41)
[2017-01-11] MEDS: Acetaminophen 325 MG TABLET PO PRN (01:56)
[2017-01-11] MEDS: Ipratropium 1 PUFF INHALER IH SCH ×4 (04:00→22:34)
[2017-01-11 05:33] LABS: Basophils % 0.4 %; Eosinophils % 0.9 %; Hematocrit 41.3 % (35.3-44.9); Hemoglobin 12.9 g/dL (11.5-15.4); Immature Granulocytes % 0.4 % (0-4); Lymphocytes # 1.9 K/mcL (0.6-4.6); Lymphocytes % 40.1 %; Mean Corpuscular HGB Conc 31.2 g/dL (31.6-35.5); Mean Corpuscular Volume 86.6 fL (83.0-100.0); Mean Platelet Volume 11.4 fL (9.4-12.4); Monocytes # 0.6 K/mcL (0.0-1.3); Monocytes % 13.9 %; Platelet Count 160 K/mcL (140-400); Red Blood Count 4.77 M/mcL (3.82-4.97); Red Cell Distribution Width 13.7 % (11.5-14.5); Segmented Neutrophils % 44.3 %
[2017-01-11 05:49] LABS: BUN/Creatinine Ratio 11 (6-26); Blood Urea Nitrogen 10 mg/dL (7-20); Calcium 8.6 mg/dL (8.6-10.8); Carbon Dioxide 28 mEq/L (19-29); Chloride 103 mEq/L (98-109); Glucose 81 mg/dL (70-99); Osmolality,Calculated 288 (280-300); Potassium 3.7 mEq/L (3.5-4.5); Sodium 140 mEq/L (136-145); eGFR For African Americans > 60 (> 60); eGFR For Non-African Americans > 60 (> 60)
[2017-01-11] MEDS: *HR* Enoxaparin 40 MG/0.4 ML SYRINGE SQ SCH (06:18)
[2017-01-11] MEDS: Insulin LISPRO 300 UNITS/3 ML VIAL SQ SCH ×4 (07:52→20:51)
[2017-01-11] MEDS: Oseltamivir Phosphate 30 MG CAPSULE PO SCH ×2 (08:04→20:50)
[2017-01-11] MEDS: 0.9 % Sodium Chloride 1,000 ML IVC SCH ×2 (08:04→23:04)
[2017-01-11] MEDS ORDERED: Levofloxacin 750 MG/150 ML 750 MG/150 ML BAG IVPB SCH (09:00)
[2017-01-11] MEDS: Levofloxacin 750 MG/150 ML 750 MG/150 ML BAG IVPB SCH (09:34)
--- NOTE | 2017-01-11 11:24 | Electrocardiograph Report ---
[place] [id number] Test Date: 2017-01-09 Pat Name: Vivian Cannon Department: 104 Room: 2A38 Gender: F Automation Controls Expert: MARY : 1945 Requested By: Ellen Velez Order Number: [id number] Reading MD: Sundar Solis MD Measurements Intervals [place] Rate: 66 P: 71 [place]: 166 QRS: 17 QRSD: 86 T: 25 QT: 374 QTc: 387 Interpretive Statements SINUS RHYTHM Electronically Signed On 01-11-2017 11:23:08 EDT by Sundar Solis MD
--- NOTE | 2017-01-11 16:37 | Internal Med Progress Note ---
Date of Encounter: 01/11/17 Time of Encounter: 16:35 - Assessment and plan (1) Pneumonia Current Visit: Yes Status: Acute Assessment and plan: Continue antibiotics. Influenza positive, continue tamiflu. Encourage po hydration, continue with iv fluids. plan to discharge the patient tomorrow if stable, d/w patient. Qualifiers: Pneumonia type: due to unspecified organism Laterality: right Lung location: lower lobe of lung Qualified Code(s): J18.1 - Lobar pneumonia, unspecified organism (2) Influenza Current Visit: Yes Status: Acute Assessment and plan: droplet precautions, tamiflu.. (3) Hypertension Current Visit: Yes Status: Chronic Qualifiers: Hypertension type: essential hypertension Qualified Code(s): I10 - Essential (primary) hypertension (4) Type 2 diabetes mellitus Current Visit: Yes Status: Chronic Qualifiers: Diabetes mellitus complication status: with circulatory complication Diabetes mellitus complication detail: with peripheral angiopathy without gangrene Diabetes mellitus intermodal customer service insulin use: with intermodal customer service use Qualified Code(s): E11.51 - Type 2 diabetes mellitus with diabetic peripheral angiopathy without gangrene; Z79.4 - [facility] (current) use of insulin (5) Sleep apnea Current Visit: Yes Status: Acute Assessment and plan: cpap. Qualifiers: Sleep apnea type: unspecified type Qualified Code(s): G47.30 - Sleep apnea , unspecified (6) DVT prophylaxis Current Visit: Yes Status: Acute - Subjective Interval history: feels better. not confused today, not in distress. her iv was not working when i saw her and she was bleeding from the iv site, bleeding stopped after pressure was applied. - Constitutional Vitals: Temp Pulse Resp BP Pulse Ox 98.1 F 53 16 154/72 95 01/11/17 11:46 01/11/17 11:46 01/11/17 15:49 01/11/17 11:46 01/11/17 15:49 General appearance: Present: A&O X 3, pleasant, no acute distress - Head Head exam: Present: atraumatic, normocephalic - Eye Eye exam: Present: PERRL, conjuntiva pink, sclera anicteric Pupils: Present: PERRL - Neck Neck exam general surgery: Present: supple, trachea midline. Absent: lymphadenopathy - Respiratory Respiratory exam: Present: decreased breath sounds. Absent: accessory muscle use, rales, rhonchi, wheezes - Cardiovascular Cardiovascular exam: Present: RRR, +S1, +S2. Absent: diastolic murmur, gallop, rubs, systolic murmur - GI/Abdominal GI/Abdominal exam: Present: normal bowel sounds, soft, no peritoneal signs. Absent: distended, tenderness - Extremities Exam Extremities exam: Present: warm, radial pulses palpable and symetrical. Absent : calf tenderness, cyanotic, pedal edema - Neurological Exam Neurological exam: Present: CN II-XII intact, oriented X3, no focal deficits. Absent: pronater drift, facial droop, speech deficit - Skin Skin exam: Present: dry, intact Internal Medicine: Result - Labs CBC & Chem 7: 01/11/17 04:31 01/11/17 04:31 - ABG Interpretation ABG results: PT/INR, D-dimer PT 12.5 Seconds (9.4-12.1) H 01/09/17 14:55 - VTE Documentation of Mechanical Device: Graduated compression elastic hosiery Consult Discharge Plan - Plan Referrals: Raz Jeter DO [Primary Care Provider] - 01/17/17 1:45 pm (Please follow up as schedule...)
[2017-01-11] MEDS: Insulin DETEMIR 100 UNIT/ML X5UNITS SQ SCH (20:50)
[2017-01-12] MEDS ORDERED: Melatonin 3 MG TABLET PO PRN (03:26)
[2017-01-12] MEDS: Ipratropium 1 PUFF INHALER IH SCH ×2 (04:25→10:41)
[2017-01-12 05:52] LABS: Basophils % 0.2 %; Eosinophils # 0.1 K/mcL (0.0-0.6); Eosinophils % 1.6 %; Hematocrit 39.8 % (35.3-44.9); Hemoglobin 12.6 g/dL (11.5-15.4); Immature Granulocytes % 0.2 % (0-4); Lymphocytes # 1.9 K/mcL (0.6-4.6); Lymphocytes % 43.8 %; Mean Corpuscular HGB Conc 31.7 g/dL (31.6-35.5); Mean Corpuscular Volume 85.4 fL (83.0-100.0); Mean Platelet Volume 11.4 fL (9.4-12.4); Monocytes # 0.5 K/mcL (0.0-1.3); Monocytes % 11.7 %; Neutrophils # 1.8 K/mcL (1.6-8.9); Platelet Count 159 K/mcL (140-400); Red Blood Count 4.66 M/mcL (3.82-4.97); Red Cell Distribution Width 13.5 % (11.5-14.5); Segmented Neutrophils % 42.5 %
[2017-01-12 06:07] LABS: BUN/Creatinine Ratio 13 (6-26); Blood Urea Nitrogen 12 mg/dL (7-20); Calcium 8.7 mg/dL (8.6-10.8); Carbon Dioxide 30 mEq/L (19-29); Chloride 103 mEq/L (98-109); Glucose 83 mg/dL (70-99); Osmolality,Calculated 291 (280-300); Sodium 141 mEq/L (136-145); eGFR For African Americans > 60 (> 60); eGFR For Non-African Americans > 60 (> 60)
[2017-01-12 06:21] LABS: Magnesium 1.9 mg/dL (1.6-2.6); Potassium 3.9 mEq/L (3.5-4.5)
[2017-01-12] MEDS: Insulin LISPRO 300 UNITS/3 ML VIAL SQ SCH ×2 (08:12→12:43)
[2017-01-12] MEDS: Levofloxacin 750 MG/150 ML 750 MG/150 ML BAG IVPB SCH (08:19)
[2017-01-12] MEDS: *HR* Enoxaparin 40 MG/0.4 ML SYRINGE SQ SCH (08:19)
[2017-01-12] MEDS: Oseltamivir Phosphate 30 MG CAPSULE PO SCH (08:20)
--- NOTE | 2017-01-12 12:02 | Discharge Summary ---
Date of Encounter: 01/12/17 Time of Encounter: 11:59 - Discharge Diagnosis (1) Pneumonia Priority: Primary Status: Acute Qualifiers: Pneumonia type: due to unspecified organism Laterality: right Lung location: lower lobe of lung Qualified Code(s): J18.1 - Lobar pneumonia, unspecified organism (2) Influenza Priority: Secondary Status: Acute (3) Hypertension Priority: Secondary Status: Chronic Qualifiers: Hypertension type: essential hypertension Qualified Code(s): I10 - Essential (primary) hypertension (4) Type 2 diabetes mellitus Priority: Secondary Status: Chronic Qualifiers: Diabetes mellitus complication status: with circulatory complication Diabetes mellitus complication detail: with peripheral angiopathy without gangrene Diabetes mellitus intermediate school teacher insulin use: with half-way use Qualified Code(s): E11.51 - Type 2 diabetes mellitus with diabetic peripheral angiopathy without gangrene; Z79.4 - terminal operations manager (current) use of insulin (5) Sleep apnea Priority: Secondary Status: Acute Qualifiers: Sleep apnea type: unspecified type Qualified Code(s): G47.30 - Sleep apnea , unspecified (6) DVT prophylaxis Priority: Secondary Status: Acute - Discharge Medications Prescriptions: Levofloxacin [Levaquin] 750 mg PO DAILY 4 Days Oseltamivir Phosphate [Tamiflu] 30 mg PO BID #4 capsule Home Medications: Alendronate Sodium [Fosamax] 70 mg PO QWEEK 03/10/16 [History] Atenolol [Tenormin] 25 mg PO BID 03/10/16 [History] Levothyroxine Sodium [Tirosint] 75 mcg PO QAM 03/10/16 [History] Triamterene/HCTZ 37.5/25mg [Dyazide] 1 each PO DAILY 03/10/16 [History] Carvedilol [Coreg] 6.25 mg PO BID 01/09/17 [History] Cholecalciferol (D-3) [Vitamin D] 5,000 unit PO DAILY 01/09/17 [History] Fexofenadine HCl 180 mg PO DAILY 01/09/17 [History] GuaiFENesin/Dextromethorphan [Mucinex Dm ER 1,200-60 mg Tab] 1 each PO Q12H [History] Insulin Glargine,Hum.rec.anlog [Lantus Solostar] 33 unit SQ HS 01/09/17 [History ] Metformin HCl [Glucophage] 1,000 mg PO BID 01/09/17 [History] Levofloxacin [Levaquin] 750 mg PO DAILY 4 Days 01/12/17 [Rx] Oseltamivir Phosphate [Tamiflu] 30 mg PO BID #4 capsule 01/12/17 [Rx] Allergies/Adverse Reactions: Allergies Penicillins [PCN] Allergy (Verified 10/31/16 11:32) Itching Sulfa (Sulfonamide Antibiotics) Allergy (Verified 10/31/16 11:32) Nausea aspirin Adverse Reaction (Verified 10/31/16 11:32) See Comments stomach ulcer Date of admission: 01/11/17 14:14 Primary care physician: Raz Jeter DO Discharging clinician: Jw Simmons Anticipated date of discharge: 01/12/17 - Patient Status Disposition: Home, Self-Care Condition: Good Functional capacity at discharge: independent ambulation Overall status at discharge: patient is back to baseline - Discharge Instructions Follow Up With: Raz Jeter DO [Primary Care Provider] - 01/17/17 1:45 pm (Please follow up as schedule...) - Diet and Activity Activity: increase activity as tolerated Interval History: Ms. Cannon is a 71 year old female hypertension, type 2 diabetes, sleep apnea , hypothyroid, asthma who presented to the emergency department today with complaints of altered mental status. Her daughter brought her in when she noted patient was very lethargic. Patient reports she has been coughing for several days with productive cough as well as poor appetite, fatigue. She reports sinus and nasal congestion, wheezing, and headache. Patient reports she took her insulin last evening but has not been eating as much because of her poor appetite. Because of this without she may have low blood sugar but they checked her blood sugar at home and it was normal at 110. However she did have a fever at home of 101.4. Patient denies chills or sweats. She denies any body aches, chest pain, palpitations, abdominal pain, diarrhea, numbness or tingling. She complains of some burning with urination. Evaluation in the emergency department revealed patient was febrile with temperature of 101.7. Head CT showed no acute intracranial abnormality. Chest x-ray showed small right basilar infiltrate possible pneumonia. EKG showed normal sinus rhythm. White blood cell count was normal at 6.6, lactate was normal at 1.2, troponin was negative at 0.0, BNP was normal at 93. UA was negative for any abnormality. Flu swab was negative. On exam, patient is alert and oriented, complaining of fatigue. She has bilateral rhonchi on auscultation. Heart has regular rate and rhythm. Hospital course: Ms. Canonn is a 71 year old female who was admitted due to fever and changes in her mental status. She was found to have a pneumonia and testing for influenza was positive. She was admitted for further management. Workup included a head CT which was essentially unremarkable, no acute intracranial abnormalities were noted. She was dehydrated and was started on IV fluids. Her mental status improved, anybody she has improved with treatment with both Levaquin and Tamiflu. The patient will be discharged home today, she will complete antibiotic course and 8 doses of Tamiflu. The patient was explained in detail about the plan, she expressed understanding. - Time Spent with Patient Total time spent providing and/or coordinating discharge services: - Constitutional Vitals: Temp Pulse Resp BP Pulse Ox 98.2 F 59 18 118/61 95 01/12/17 08:03 01/12/17 08:03 01/12/17 08:03 01/12/17 08:03 01/12/17 08:26 General appearance: Present: A&O X 3, pleasant, no acute distress - Head Head exam: Present: atraumatic, normocephalic - Eye Eye exam: Present: PERRL, conjuntiva pink, sclera anicteric Pupils: Present: PERRL - Neck Neck exam general surgery: Present: supple, trachea midline. Absent: lymphadenopathy - Respiratory Respiratory exam: Present: CTAB. Absent: accessory muscle use, rales, rhonchi, wheezes - Cardiovascular Cardiovascular exam: Present: RRR, +S1, +S2. Absent: diastolic murmur, gallop, rubs, systolic murmur - GI/Abdominal GI/Abdominal exam: Present: normal bowel sounds, soft, no peritoneal signs. Absent: distended, tenderness - Extremities Exam Extremities exam: Present: warm, radial pulses palpable and symetrical. Absent : calf tenderness, cyanotic, pedal edema - Neurological Exam Neurological exam: Present: CN II-XII intact, oriented X3, no focal deficits. Absent: pronater drift, facial droop, speech deficit - Skin Skin exam: Present: dry, intact - VTE Documentation of Mechanical Device: Graduated compression elastic hosiery
[2017-01-12 13:56] VITALS: BP 150/73
== END 2017-01-12 14:02 | disposition home or self-care (01) | DRG 195 ==
LOC: 2ANU 13:10 → EMEROO 13:10 → SUATTDRO 16:48 → 2ANU 17:20
PROVIDERS: ADMIT Internal Medicine; ATTEND Internal Medicine